=== PATIENT | male | born 1960 | race Caucasian/White ===

== ENCOUNTER → 2019-10-30 09:04 | Outpatient (CLI) | payer OTHER, SELFPAY ==
--- NOTE | 2019-10-30 09:33 | DI.ECHO.S_ITS ---
Echocardiogram Report + + :Name: DEENA MARTIN Study Date: 10/30/2019 Height: 71 in : :[facility] Weight: 165 lb : : Gender: Male BSA: 1.9 m2 : :: 1960 Age: 59 yrs BP: 156/89 mmHg: :Reason For Study: TACHYCARDIA : :Ordering Physician: TIRSO, : :GARCIA Performed By: Abiola Myers : :Referring: GARCIA CHAHAL L : + + Interpretation Summary The left ventricle is normal in size and wall thickness. Left ventricular systolic function is normal without focal wall motion abnormalities. The ejection fraction is estimated to be 60-65%. Diastolic parameters suggest probable normal left ventricular diastolic function and normal filling pressures. The right ventricle is normal in size and function. The right ventricular systolic pressure is estimated to be at least 22 mmHg based on an estimated right atrial pressure of 3 mm Hg. The left atrial size is normal. Right atrial size is normal. There is mild mitral regurgitation. There is mild aortic regurgitation. There is no other significant valvular heart disease. The aortic arch is mildly enlarged. Procedure: A two-dimensional transthoracic echocardiogram with color flow and Doppler was performed. The study quality was technically adequate. There is no prior echocardiogram noted for this patient. Left Ventricle: The left ventricle is normal in size and wall thickness. Left ventricular systolic function is normal without focal wall motion abnormalities. The ejection fraction is estimated to be 60-65%. Diastolic parameters suggest probable normal left ventricular diastolic function and normal filling pressures. Right Ventricle: The right ventricle is normal in size and function. Atria: The left atrial size is normal. Right atrial size is normal. There is no Doppler evidence for an interatrial shunt. Mitral Valve: The mitral valve is normal in structure and function. There is mild mitral regurgitation. Aortic Valve: The aortic valve is trileaflet. The aortic valve opens well. There is no aortic valve stenosis. There is mild aortic regurgitation. Tricuspid Valve: The tricuspid valve is normal in structure and function. There is mild tricuspid regurgitation. The right ventricular systolic pressure is estimated to be at least 22 mmHg based on an estimated right atrial pressure of 3 mm Hg. Pulmonic Valve: The pulmonic valve leaflets are thin and pliable; valve motion is normal. There is no pulmonic valvular regurgitation. There is no other significant valvular heart disease. Great Vessels: The aortic root is normal size. The ascending aorta could not be visualized. The aortic arch is mildly enlarged. The IVC is of normal diameter and collapses greater than 50% with a sniff. This suggests a low right atrial pressure of 3 mm Hg. Pericardium/ Pleura There is no pericardial effusion. There is no pleural effusion. MMode/2D Measurements & Calculations LVIDd: 5.1 cm LVOT diam: 2.1 cm LVIDs: 3.3 cm Ao root diam: 3.7 cm FS: 36.1 % Ao Arch Diam (Prox Trans): 3.4 cm EPSS: 0.63 cm IVSd: 0.98 cm LVPWd: 0.90 cm LV vela. diameter/BSA (cm/m^2): 2.6 LV sys. diameter/BSA (cm/m^2): 1.7 LA A2 area: 16.1 cm2 RA long axis: 4.2 cm LA A4 area: 17.8 cm2 RA area: 14.6 cm2 LA length (vol): 4.9 cm RA vol: 43.4 ml LA vol: 50.0 ml RA : 22.3 ml/m2 LA vol index: 25.7 ml/m2 IVC diam: 1.8 cm RVD1 (basal): 3.5 cm TAPSE: 1.8 cm Doppler Measurements & Calculations Ao V2 max: 121.7 cm/sec LVOT Max Jorge: 107.8 cm/sec Ao V2 mean: 82.2 cm/sec LV V1 max P.7 mmHg Ao max P.9 mmHg LV V1 VTI: 25.1 cm Ao mean P.1 mmHg WAI(I,D): 2.8 cm2 Ao V2 VTI: 29.1 cm WAI(V,D): 2.9 cm2 sev ratio: 0.86 WAI indexed to BSA (cm^2/m^2): 1.5 MV E max jorge: 68.0 cm/sec TR max jorge: 217.9 cm/sec MV A max jorge: 56.0 cm/sec TR max P.0 mmHg MV E/A: 1.2 PA V2 max: 84.9 cm/sec Med Peak E' Jorge: 7.8 cm/sec PA V2 mean: 55.4 cm/sec E/E' med: 8.7 PA mean P.4 mmHg Lat Peak E' Jorge: 10.8 cm/sec PA pr(Accel): 13.9 mmHg E/E' lat: 6.3 E/e' average: 7.5 MV dec time: 0.20 sec SV(LVOT): 82.9 ml Reading Physician:05:59 PM
== END ==
PROVIDERS: PCP Family Medicine; Referring Provider Family Medicine; Visit Provider Family Medicine
DX: I08.3 Combined rheumatic disorders of mitral, aortic and tricuspid valves (principal); I77.89 Other specified disorders of arteries and arterioles; R00.0 Tachycardia, unspecified; R00.2 Palpitations
CPT/HCPCS: 93306

== ENCOUNTER → 2020-06-02 15:03 | Outpatient (CLI) | payer OTHER, SELFPAY ==
--- NOTE | 2020-06-02 | DI.CT.S_ITS ---
PROCEDURE: CT ANGIO CHEST ABDOMEN PELVIS INDICATIONS: aortic abnormality TECHNIQUE: Precontrast 5 mm thick sections acquired from the lung apices to the iliac crests. After the administration of intravenous contrast, 2.5 mm thick sections again acquired from the lung apices to the iliac crests. Maximum intensity projection (MIP) oblique sagittal and coronal reformats were then acquired. For radiation dose reduction, the following was used: automated exposure control. COMPARISON: None. FINDINGS: Image quality: Excellent. AORTA: There is mild fusiform dilatation of the ascending thoracic aorta measuring 38 mm short axis without aneurysm. There is mild, roughly 28 mm diameter ectasia of the proximal descending thoracic aorta without aneurysm. Abdominal aorta is normal in caliber. No evidence of aortic dissection. No significant stenosis. CHEST: Lungs and pleura: No acute airspace opacities. No pleural effusions or pneumothorax. Central and peripheral airways are patent and normal in caliber. Mediastinum: Heart size is normal. There is minimal atherosclerotic calcification of the coronary vasculature. No pericardial effusion. No mediastinal or hilar adenopathy by size criteria. Central pulmonary arteries are normal in size. Esophagus is normal in caliber. No hiatal hernias. Bones and chest wall: No axillary adenopathy by size criteria. Thyroid gland is grossly unremarkable . No suspicious bony lesions. No vertebral body compression fractures. ABDOMEN: Vasculature: Celiac trunk and mesenteric arteries are patent. Renal arteries are also patent. Bilateral common iliac arteries demonstrate mild calcific stenoses. Bilateral internal and external iliac arteries are patent. Solid organs: Liver is normal in size and enhancement. Gallbladder is contracted . Biliary system is non dilated. Pancreas enhances normally. Spleen is normal in size and enhancement. No adrenal nodules. Both kidneys are normal in size and enhancement, without hydronephrosis. Peritoneum and bowel: No free fluid or air. Bowel loops are normal in caliber and wall thickness. Normal appendix. Nodes and vessels: No retroperitoneal or mesenteric adenopathy by size criteria. Inferior vena cava is normal in morphology. Miscellaneous: No ventral hernias. PELVIS: Genitourinary: Urinary bladder is decompressed. Miscellaneous: No inguinal hernias or adenopathy. No ventral hernias. Bones: No suspicious bony lesions. No vertebral body compression fractures. IMPRESSION: 1. Mild dilatation of the thoracic aorta as described above without aneurysm. No aortic dissection. 2. Mild coronary artery disease. Dictated by: Wilber Farrell M.D. on 06/02/2020 at 16:04 Approved by: Wilber Farrell M.D. on 06/02/2020 at 16:10
== END ==
PROVIDERS: PCP Family Medicine; Referring Provider Internal Medicine Cardiovascular Disease; Visit Provider Internal Medicine Cardiovascular Disease
DX: R00.2 Palpitations (principal); I77.810 Thoracic aortic ectasia; I25.10 Atherosclerotic heart disease of native coronary artery without angina pectoris; I10 Essential (primary) hypertension; Q25.40 Congenital malformation of aorta unspecified
CPT/HCPCS: 75635; Q9967

== ENCOUNTER → 2021-09-16 07:56 | Outpatient (CLI) | payer OTHER, SELFPAY ==
--- NOTE | 2021-09-16 | DI.US.S_ITS ---
PROCEDURE: US ABD AORTA ANEURYSM SCREEN INDICATIONS: Thoracic aortic ectasia TECHNIQUE: Real time scanning was performed of the aorta and iliac arteries, with image documentation. COMPARISON: [facility], CT, CT ANGIO CHEST ABDOMEN PELVIS, 06/02/2020, 15:10. FINDINGS: Aorta: Proximal aortic diameter measures 2 cm. Mid-aorta measures 1.9 cm. Distal aortic diameter is 1.8 cm. Iliac arteries: Right common iliac artery measures 0.9 cm. Left common iliac artery measures 1.1 cm. IMPRESSION: Negative for aneurysm. Dictated by: Zurdo Mahoney M.D. on 09/16/2021 at 10:42 Approved by: Zurdo Mahoney M.D. on 09/16/2021 at 10:42
--- NOTE | 2021-09-16 | DI.ECHO.S_ITS ---
[place] +---------+ [facility] +---------+ : : [address] : [address] : : : : [id number] : : : : Phone: [phone]+ Echocardiogram Report + + :Name: DEENA MARTIN Study Date: 09/16/2021 Height: 71 in : :[facility] ReadingLocation: Weight: 165 lb : : Gender: Male BSA: 1.9 m2 : :: 1960 Age: 60 yrs BP: 140/97 mmHg: :Reason For Study: Aortic, Ascending Aneurysm : :Ordering Physician: RAY, : :JENNIFER Rodas Performed By: Rashawn Nam : :Referring: JENNIFER BELL : + + Interpretation Summary The ejection fraction is estimated to be 55-60%. The aortic root is normal size. Procedure: A two-dimensional transthoracic echocardiogram with color flow and Doppler was performed. The study quality was technically adequate. Comparison is made with the echocardiogram of 10/30/2019. The patient was in normal sinus rhythm during the exam. Left Ventricle: The left ventricle is normal in size and wall thickness. Left ventricular systolic function is normal. The ejection fraction is estimated to be 55-60%. There are no focal wall motion abnormalities. Diastolic parameters suggest probable normal left ventricular diastolic function and normal filling pressures. Right Ventricle: The right ventricle is normal in size and function. Atria: Both atria are normal in size. The interatrial septum grossly appears intact with no obvious evidence for an atrial septal defect. Mitral Valve: The mitral valve is normal in structure and function. There is no mitral regurgitation noted. Aortic Valve: The aortic valve is normal in structure and function. There is trace aortic regurgitation. Tricuspid Valve: The tricuspid valve is normal in structure and function. There is a trace or physiologic amount of tricuspid regurgitation. The right ventricular systolic pressure is estimated to be at least 22 mmHg based on an estimated right atrial pressure of 3 mm Hg. Pulmonic Valve: The pulmonic valve is normal in structure and function. There is no pulmonic valvular regurgitation. Great Vessels: The aortic root is normal size. The dimensions of the ascending aorta are normal. The IVC is of normal diameter and collapses greater than 50% with a sniff. This suggests a low right atrial pressure of 3 mm Hg. Pericardium/ Pleura There is no pericardial effusion. There is no pleural effusion. MMode/2D Measurements & Calculations LVIDd: 4.7 cm LVOT diam: 2.0 cm LVIDs: 3.2 cm Ao root diam: 3.0 cm FS: 31.9 % asc Aorta Diam: 3.3 cm IVSd: 0.80 cm Ao Arch Diam (Prox Trans): 2.9 cm LVPWd: 1.0 cm LV vela. diameter/BSA (cm/m^2): 2.4 LV sys. diameter/BSA (cm/m^2): 1.6 LA dimension: 2.8 cm RA long axis: 4.4 cm LA A2 area: 16.3 cm2 LA A4 area: 17.3 cm2 LA length (vol): 5.4 cm LA vol: 44.0 ml LA vol index: 22.6 ml/m2 TAPSE_phl: 2.3 cm Doppler Measurements & Calculations Ao V2 max: 125.0 cm/sec LVOT Max Jorge: 102.0 cm/sec Ao V2 mean: 87.7 cm/sec LV V1 max P.2 mmHg Ao max P.0 mmHg LV V1 VTI: 19.7 cm Ao mean P.0 mmHg WAI(I,D): 2.6 cm2 Ao V2 VTI: 23.8 cm WAI(V,D): 2.6 cm2 sev ratio: 0.83 WAI indexed to BSA (cm^2/m^2): 1.3 MV E max jorge: 63.0 cm/sec TR max jorge: 215.0 cm/sec MV A max jorge: 63.8 cm/sec TR max P.5 mmHg MV E/A: 0.99 Med Peak E' Jorge: 6.3 cm/sec E/E' med: 10.0 Lat Peak E' Jorge: 9.4 cm/sec E/E' lat: 6.7 E/e' average: 8.4 MV dec time: 0.26 sec SV(LVOT): 61.9 ml AV VR_phl: 0.82 WAI(VTI)/BSA_phl: 1.3 MV P1/2t-pr_phl: 77.0 msec Reading Physician:04:23 PM
== END ==
PROVIDERS: PCP Family Medicine; Referring Provider Family Medicine; Visit Provider Family Medicine
DX: I77.810 Thoracic aortic ectasia (principal); R09.89 Other specified symptoms and signs involving the circulatory and respiratory systems
CPT/HCPCS: 76706; 93306

== ENCOUNTER → 2023-01-12 10:19 | Outpatient (CLI) | payer OTHER, SELFPAY | PROVIDERS: Family Provider Family Medicine; PCP Family Medicine; Referring Provider Family Medicine; Visit Provider Family Medicine | DX: M54.16 Radiculopathy, lumbar region (principal); E04.1 Nontoxic single thyroid nodule | CPT/HCPCS: 76536; 95886; 95910 ==

== ENCOUNTER → 2023-01-12 12:17 | Outpatient (CLI) | payer OTHER, SELFPAY ==
--- NOTE | 2023-01-12 | DI.US.S_ITS ---
PROCEDURE: US THYROID INDICATIONS: THYROID NODULE TECHNIQUE: Real-time scanning was performed of the thyroid gland, with image documentation. COMPARISON: None. FINDINGS: Right: Thyroid lobe measures 5.2 x 1.3 x 1.5 cm, and is homogeneous in echotexture. Left: Thyroid lobe measures 5.3 x 2.4 x 1.1 cm, and is homogenous in echotexture. Isthmus: 5 mm thick. Nodule number: 1 Location: Isthmus Size: 1.0 x 1.1 x 0.7 cm. Composition: Solid Echogenicity: Hypoechoic Shape: wider than tall. Margins: Smooth Echogenic foci: None Total points: 4 ACR TI-RADS category: 4 Nodule number: 2 Location: Left inferior pole Size: 1.3 x 0.9 x 1.1 cm. Composition: Solid Echogenicity: Hypoechoic Shape: wider than tall. Margins: Smooth Echogenic foci: Punctate Total points: 7 ACR TI-RADS category: 5 IMPRESSION: 1. TI-RADS 4 nodule in the isthmus less than 1.5 cm. Recommend follow-up as per below recommendations. 2. TI-RADS 5 nodule in the left inferior pole greater than 1 cm. Recommend FNA as per below recommendations. ACR TI-RADS definitions and recommendations: TI-RADS 1 (benign): 0 points. FNA not needed. TI-RADS 2 (not suspicious): 2 points. FNA not needed. TI-RADS 3 (mildly suspicious): 3 points. * FNA if 2.5 cm or larger, follow up if 1.5 cm or larger (at 1, 3, and 5 years). TI-RADS 4 (moderately suspicious): 4-6 points. * FNA if 1.5 cm or larger, follow up if 1 cm or larger (at 1, 2, 3, and 5 years). TI-RADS 5 (highly suspicious): 7 points or more. * FNA if 1 cm or larger, follow up if 0.5 cm or larger (every year for 5 years). Dictated by: Mejia Alvares M.D. on 01/12/2023 at 15:38 Approved by: Mejia Alvares M.D. on 01/12/2023 at 15:41
== END ==
PROVIDERS: Family Provider Family Medicine; PCP Family Medicine; Referring Provider Family Medicine; Visit Provider Family Medicine
DX: E04.1 Nontoxic single thyroid nodule (principal)
CPT/HCPCS: 76536